=== PATIENT | male | born 1990 | race Two or more races ===

== ENCOUNTER 2023-06-18 08:29 | Outpatient (AMB) | payer MEDICAID, SELFPAY ==
--- NOTE | 2023-06-18 08:34 | A.OFFVIS_ITS ---
Intake Vital Signs 06/18/23 08:36 Height 5 ft 8 in Weight 195 lb 6 oz BMI 29.7 BP 110/70 Blood Pressure Location Rt brachial Position Sitting Respiration 16 Pulse 81 Pulse Source Pulse Oximeter Pulse Oximetry (%) 98 Oxygen Delivery Method Room Air Intake Visit Reasons: ENP-ANGELINE - Confirmed Intake Note: Pt presents to the office for new pt evaluation for ANGELINE. He states he is here to check up on my sleep apnea . 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 He states he's been feeling tired during the day and has even been gaining weight. 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 Pt reports that he was diagnosed with moderate degree of sleep apnea and started CPAP therapy in 2019. However, he lost his mask and power cord when he moved, and could not use it. His home care company is reliable. He states that he could sleep well with CPAP and daytime sleepiness has improved with CPAP. He reports snoring, gasping arousals, nocturia and non refreshing sleep with daytime tiredness. Sleep questionnaire: Have you ever been diagnosed with a sleep disorder? Yes. Have you ever had a sleep study in the past? Yes, home sleep study in 2019. Have you ever been treated for a sleep disorder? Yes, CPAP Do you take medications for a sleep disorder? No. Do you snore? Yes. Do you wake up gasping at night? Yes. Do you have episodes of apneas? Yes. If yes, are they witnessed? Yes. Do you have episodes of nocturnal chest pain or dyspnea? Yes. Do you have difficulty initiating sleep? No. Do you have difficulty maintaining sleep? Yes. Do you wake up tired? Yes. Do you have headaches upon awakening? Yes. Do you wake up with dry mouth or throat? Yes. Do you have GERD? Yes. Do you have nocturia? Yes, 2-3 times. Do you have nocturnal leg cramps? Yes. Do you have symptoms of restless legs? No. Do you act out your dreams? No. Sleep hygiene questionnaire: What is your usual sleep routine? Usual bedtime is at 9-10 pm; Usual wake up time is at 5 am. Do you take naps? No. Is your sleep environment cool, dark, and quiet? Yes. Do you exercise? No. Do you take caffeine or other stimulants? Soda and energy drink. Do you use electronics in bed? Yes. What is your work schedule? 6 am to 6 pm. Hypersomnolence questionnaire: Do you have daytime tiredness or fatigue? Yes. Do you easily fall asleep when inactive? Yes. Have you ever had episodes of sudden weakness? No. Have you ever had episodes of sudden weakness associated with strong emotions? No. PFSH Medical History (Updated 06/18/23 @ 09:11 by Renetta Barrera CNP) Clavicle fracture Family History (Updated 06/18/23 @ 08:44 by Kary Lockett CMA) Mother Diabetes HTN (hypertension) Father No problems noted. Brother No problems noted. Social History (Updated 06/18/23 @ 08:45 by Kary Lockett CMA) Household Members: Spouse and Children Housing: House Alcohol intake: current Patient Tobacco Use Status: Former Tobacco user Review of Systems Const All systems reviewed & are unremarkable except as noted in HPI and below ENT Reports Normal hearing present Neuro Reports Normal hearing present Physical Exam Vital Signs: Last Vital Signs Pulse 81 06/18/23 08:36 Resp 16 06/18/23 08:36 BP 110/70 06/18/23 08:36 Pulse Ox 98 06/18/23 08:36 Oxygen Delivery Method Room Air 06/18/23 08:36 BMI result Body Mass Index 29.7 Const General: cooperative and tired appearing Nutritional Appearance: overweight Orientation/consciousness: patient oriented x3 Neck Neck: Yes full ROM and Yes supple Resp Effort & Inspection: normal respiratory effort and able to speak in complete sentences Neuro General: patient oriented x3, gait normal and moves all extremities Cranial nerves: Yes Bilaterally intact EOM present, Yes Normal facial strength present, Yes Midline tongue present, Yes Symmetric palate elevation present, Yes Normal hearing present, Yes Ability to bilaterally rotate head present and Yes Ability to bilaterally elevate shoulders present Cognition (Neuro): normal cognition Gait exam (Neuro): Normal gait present Motor exam (neuro): 5/5 motor strength present throughout, Pronator motor function not present and no tremor noted Psych Appearance: grossly normal Mental Status: mental status grossly normal Speech and movement: Normal speech and movement present Affect: normal affect Attitude: cooperative Assessment & Plan Assessment & Plan (1) ANGELINE on CPAP: Code(s): G47.33 - Obstructive sleep apnea (adult) (pediatric) Plan Pt is advised to undergo home sleep study to assess for sleep apnea and to apply for new CPAP and supplies. Will f/u with pt after study to discuss results and appropriate treatment options. Wt reduction advised. Pt to call with any worsening concerns or questions. Coding Level of Care Code New Pt Level 3 (81977) Diagnoses ANGELINE on CPAP G47.33
[2023-06-18 08:36] VITALS: BP 110/70; PULSE 81; RESP 16; O2SAT 98; BMI 29.7
== END 2023-06-18 09:17 | disposition home or self-care (01) ==
PROVIDERS: PCP Physician Assistant; Visit Provider Nurse Practitioner Family
DX: G47.33 Obstructive sleep apnea (adult) (pediatric) (principal)
CPT/HCPCS: 99203

== ENCOUNTER → 2023-06-18 08:29 | Outpatient (BNVA) | payer MEDICAID, SELFPAY | PROVIDERS: PCP Physician Assistant; Visit Provider Nurse Practitioner Family | DX: G47.33 Obstructive sleep apnea (adult) (pediatric) (principal); R06.83 Snoring; R40.0 Somnolence | CPT/HCPCS: 99202; 99212 ==

== ENCOUNTER 2023-08-19 21:55 | Emergency (ER) | payer MEDICAID, SELFPAY ==
--- NOTE | ~2023-08-19 | XR_ITS ---
EXAMINATION: XR LUMBOSACRAL SPINE CLINICAL INFORMATION: Low back pain, fall COMPARISON: None available. TECHNIQUE: Three views of the lumbosacral spine. FINDINGS: The vertebral bodies and posterior elements are normal. The disc spaces are preserved and the vertebral alignment is normal. The paraspinal soft tissues are normal. XR/XR lumbar spine 2-3V IMPRESSION: Unremarkable lumbar spine examination.
[2023-08-19 22:54] VITALS: BP 144/86; PULSE 99; RESP 18; TEMP 36.8; O2SAT 96; BMI 29.0
[2023-08-19 23:32] VITALS: BP 125/68; PULSE 87; RESP 14; TEMP 36.8; O2SAT 95
--- NOTE | 2023-08-20 01:01 | ED.BACK ---
HPI - Back Pain/Injury General Chief Complaint: Back Pain/Injury Stated Complaint: Lower back pain Time Seen by Provider: 08/19/23 23:14 Source: patient Mode of arrival: ambulatory Limitations: no limitations History of Present Illness HPI Narrative: Patient is a 33-year-old male presents emergency department for evaluation of back pain. Diffuse across his lower back. He states he had 2 slip and falls on wet pavement yesterday and today. Today he fell with his back landing on to a stair resulting in pain that is radiating into the bilateral buttock. He reports a history of fracture to L1 and L3, did not require any surgical intervention. Denies recent fevers, chills, burning with micturition, urinary frequency/urgency/hesitancy, bladder or bowel dysfunction, numbness or tingling of the perineum or bilateral legs. Denies any recent surgical procedures, any known immune compromising conditions, personal history of cancer, or IV drug usage. MD elicited complaint: back pain Related Data Home Medications Medication Instructions Recorded Confirmed omeprazole 20 mg capsule,delayed 20 mg PO DAILY 06/18/23 release Previous Rx's Medication Instructions Recorded cyclobenzaprine 10 mg tablet 10 mg PO TID PRN muscle spasm #20 08/20/23 tabs lidocaine 5 % topical patch 1 patch topical DAILY #15 ea 08/20/23 Allergies Allergy/AdvReac Type Severity Reaction Status Date / Time morphine Allergy Intermediate Hallucinati Verified 06/18/23 08:40 ons Penicillins Allergy Intermediate Anaphylaxis Verified 06/18/23 08:40 Review of Systems Review of Systems: Yes all other systems are reviewed and are negative ON LICENSE OF [facility] Past Medical History Attestation statement: The following information was validated with the patient. Source: old records reviewed Medical History Clavicle fracture Family History Family History (Updated 06/18/23 @ 08:44 by Kary Lockett CMA) Mother Diabetes HTN (hypertension) Father No problems noted. Brother No problems noted. Social History Social History (Updated 06/18/23 @ 08:45 by Kary Lockett CMA) Household Members: Spouse and Children Housing: House Alcohol intake: current Patient Tobacco Use Status: Former Tobacco user Advance Directives: No Advance Directives Information Provided: No Physical Exam Vital Signs: Vital Signs: Last Vital Signs Temp 98.2 F 12/27/23 23:32 Pulse 87 08/19/23 23:32 Resp 14 08/19/23 23:32 BP 125/68 08/19/23 23:32 Pulse Ox 95 08/19/23 23:32 O2 Del Method Room Air 08/19/23 23:32 BMI result Body Mass Index 29.0 Appearance: Alert.?Oriented to person, place and time. No acute distress.?Normal affect. Eyes: Pupils equal, round and reactive to light.? ENT: Pharynx normal.?? Neck: Normal inspection.? Neck supple.?? CVS: Heart sounds normal. Normal heart rate and rhythm.? Pulses normal; bilateral radial pulses 2+, bilateral posterior tibial/dorsalis pedis pulses 2+.? Respiratory: No respiratory distress.? Lung sounds clear to auscultation bilaterally?? Abdomen: Soft and non-tender. Normoactive bowel sounds. No pulsatile mass.?? Skin: Skin warm and dry.? Normal skin color.? Normal skin turgor.?? Extremities: No lower extremity edema.? No calf ttp? Back: + mild paraspinal muscular tenderness from lumbar region to coccyx. No CVA tenderness. No midline spinal tenderness, step-off's, or deformity. Full ROM intact in bilateral lower extremities. Straight leg test positive on right; Straight leg test positive on left. No rashes, lesions, areas of induration or fluctuance, or signs of infection noted., Neuro: Moves all extremities spontaneously. 5/5 strength in hip extension/flexion, abduction, adduction. Sensation to light touch intact bilaterally. Patellar and Achilles reflex 2+ bilaterally. No ataxia, gait normal and steady.. No focal neuro deficits. Medications Administered Discontinued Medications Generic Name Dose Route Start Last Admin Trade Name Freq PRN Reason Stop Dose Admin Ketorolac Tromethamine 30 mg 08/20/23 01:00 08/20/23 01:20 Ketorolac Tromethamine 30 Mg/Ml Vial IM 08/20/23 01:01 30 mg ONCE ONE Administration Lidocaine 1 patch 08/20/23 01:00 08/20/23 01:21 Lidocaine 4 % Patch Adh..Patch TRANSDERMA 08/20/23 01:01 1 patch ONCE ONE Administration Protocol Medical Decision Making Medical Decision Making MDM Narrative: Patient is a 33-year-old male who presents emergency department for evaluation of low back pain s/p mechanical fall. Upon physical examination there is no palpable midline lumbar spine tenderness, step-offs, deformities. XR reveals no evidence of fracture or subluxation. At this time suspect that Pain is most consistent with muscular pain, although cannot completely exclude herniated disc. On neurological exam there are no deficits. Not consistent with spinal infection, epidural abscess, AAA, epidural abscess, or dissection. No high risk past medical history including incontinence, fever, immunosuppression, recent surgery or lumbar puncture, coagulopathy, significant trauma, recent unintentional weight loss, pulsatile mass, history of cancer, history of TB, history of IV drug use that would warrant MRI or CT. Not consistent with ectopic , pyelonephritis, urinary tract infection, renal calculi, pelvic infection, appendicitis, diverticulitis. On exam no concern for cauda equina syndrome. No imaging is currently indicated at this time. Plan for discharge home with advised mint for rest, ice/heat, acetaminophen/ibuprofen, like patch, prescription for cyclobenzaprine, and follow-up with primary care provider, and patient agreed with plan. Differential Diagnosis Differential Diagnoses: The differential diagnosis associated with the presentation includes (As noted above) Admission/Observation Consideration of admission/observation: Escalation of care including admission/observation considered (As noted above) Independent Interpretation I performed an independent interpretation of an: Plain X-Ray (I personally interpreted XR imaging and agree with radiologist impression.) Radiology Impression Discussion of test interpretation with radiology: I have reviewed the radiologist's reading. Radiologist Impression: XR/XR lumbar spine 2-3V IMPRESSION: Unremarkable lumbar spine examination. Independent Historian Clinical information obtained from an independent historian. History obtained from or confirmed by: Spouse Prescription Management I considered prescription management with: Pain Medication Discharge Plan Discharge Clinical Impression: Strain of lumbar region Patient Disposition: Home, Self-Care Instructions: Acute Low Back Pain (ED), R.I.C.E. Treatment (ED), Lower Back Exercises (ED) Additional Instructions: You can take ibuprofen 200 mg, 3 tablets (600mg) every 6-8 hours as needed for pain, in addition to Tylenol 500 mg, 2 tablets (1,000mg) every 4-6 hours as needed for pain, but not to exceed 3 doses daily (3,000mg).? Apply ice the area for 10-15 minutes 3-4 times daily. Apply Lidoderm patch to area of most pain, leave on for 12 hours, remove for 12 hours. I have sent a prescription for cyclobenzaprine/Flexeril to your pharmacy, this muscle relaxant medication. This medication may make you drowsy. Should not drive, drink alcohol, or work while taking this medication. Prescriptions: New lidocaine 5 % adhesive patch,medicated 1 patch topical DAILY Qty: 15 0RF Rx Instructions: leave on most painful area for up to 12 hrs cyclobenzaprine 10 mg tablet 10 mg PO TID PRN (Reason: muscle spasm) Qty: 20 0RF No Action omeprazole 20 mg capsule,delayed release(DR/EC) 20 mg PO DAILY Referrals: Mayte Urena PA-C [Primary Care Provider] - Interventions: ED Discharge Assessment Last Done: 08/20/23 01:28 Discharge Date/Time: 08/20/23 01:30
[2023-08-20] MEDS: Ketorolac Tromethamine 30 MG/ML VIAL IM (01:20)
[2023-08-20] MEDS: Lidocaine 4 % Patch ADH..PATCH 1 PATCH TRANSDERMA (01:21)
== END 2023-08-20 01:30 | disposition home or self-care (01) ==
PROVIDERS: Emergency Provider Student in an Organized Health Care Education/Training Program; PCP Physician Assistant
DX: S39.012A Strain of muscle, fascia and tendon of lower back, initial encounter (principal); W01.0XXA Fall on same level from slipping, tripping and stumbling without subsequent striking against object, initial encounter; Y93.9 Activity, unspecified; Y92.9 Unspecified place or not applicable; Y99.9 Unspecified external cause status
CPT/HCPCS: 72100; 96372; 99283; 99284; J1885

== ENCOUNTER → 2023-08-25 13:58 | Outpatient (REF) | payer MEDICAID, SELFPAY | LOC: HO.SL 13:58 | PROVIDERS: PCP Physician Assistant; Visit Provider Nurse Practitioner Family | DX: G47.33 Obstructive sleep apnea (adult) (pediatric) (principal) | CPT/HCPCS: 95806; 95811 ==

== ENCOUNTER → 2023-08-25 14:12 | Outpatient (BNV) | payer MEDICAID, SELFPAY | PROVIDERS: PCP Physician Assistant; Visit Provider Psychiatry & Neurology Neurology | DX: G47.33 Obstructive sleep apnea (adult) (pediatric) (principal) | CPT/HCPCS: 95806 ==

== ENCOUNTER → 2023-09-23 22:13 | Outpatient (REF) | payer MEDICAID, SELFPAY | LOC: HO.SL 22:13 | PROVIDERS: PCP Physician Assistant; Visit Provider Nurse Practitioner Family | DX: Z13.89 Encounter for screening for other disorder (principal) ==

== ENCOUNTER → 2023-09-23 22:38 | Outpatient (BNV) | payer MEDICAID, SELFPAY | PROVIDERS: PCP Physician Assistant; Visit Provider Psychiatry & Neurology Neurology | DX: G47.33 Obstructive sleep apnea (adult) (pediatric) (principal) | CPT/HCPCS: 95811 ==

== ENCOUNTER 2025-04-21 12:06 | Emergency (ER) | payer SELFPAY ==
--- NOTE | ~2025-04-21 | XR_ITS ---
EXAMINATION: XR SHOULDER 2 OR MORE VIEWS RIGHT HISTORY: pain COMPARISON: There are no prior studies available for comparison. FINDINGS: Four views of the right shoulder are submitted. Osseous mineralization is normal. The patient is status post internal fixation of the clavicle with plate and screws. No acute fracture or dislocation is seen. The glenohumeral and acromioclavicular joint spaces are preserved. The soft tissues are unremarkable. XR/XR shoulder RT min 2V IMPRESSION: Internal fixation of the right clavicle. Otherwise unremarkable examination of the right shoulder. Electronically signed by: Aleksandr Abdalla MD 04/21/2025 12:46 PM EDT
[2025-04-21 12:26] VITALS: BP 108/82; PULSE 94; RESP 16; TEMP 36.3; O2SAT 95; BMI 29.0
--- NOTE | 2025-04-21 12:26 | ED_ITS ---
HPI - General Adult General Chief complaint: Extremity Injury, Upper Stated complaint: pain in right shoulder Time Seen by Provider: 04/21/25 12:35 Source: patient Mode of arrival: ambulatory Limitations: no limitations History of Present Illness ED Provider: SEVERINO CASTRO PA-C HPI narrative: 35 year old male presents to the ED today for evaluation of right shoulder pain which began yesterday evening. He does not recall any specific enticing event. He states that he was playing with his children after school around 1500. After this, he began to have gradual onset of right shoulder pain. Pain extends from lateral aspect of right shoulder up into his right neck. Pain is exacerbated with any movement of the right upper extremity. Denies any numbness/tingling of the right upper extremity. Denies blunt trauma or injury. 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 Pertinent surgical history includes internal fixation of right clavicle. Related Data Home Medications ?Medication ?Instructions ?Recorded ?Confirmed omeprazole 20 mg capsule,delayed 20 mg PO DAILY release Previous Rx's ?Medication ?Instructions ?Recorded cyclobenzaprine 10 mg tablet 10 mg PO TID PRN muscle s pasm #20 08/20/23 tabs lidocaine 5 % topical patch 1 patch topical DAILY #15 ea 08/20/23 Allergies Allergy/AdvReac Type Severity Reaction Status Date / Time morphine Allergy Intermediate Hallucinati Verified 04/21/25 12:28 ons Penicillins Allergy Intermediate Anaphylaxis Verified 04/21/25 12:28 Review of Systems Review of Systems: Yes all other systems are reviewed and are negative PMFSH Past Medical History Attestation statement: The following information was validated with the patient. Source: old records reviewed and nursing notes reviewed Medical History Clavicle fracture Family History Family History Mother Diabetes HTN (hypertension) Father No problems noted. Brother No problems noted. Social History Social History Household Members: Spouse and Children Housing: House Alcohol intake: current Patient Tobacco Use Status: Former Tobacco user Smoked in Last 30 Days: No Use of substances other than those prescribed or required for medical reasons: No Advance Directives: No Advance Directives Information Provided: Yes Do you have a plan to hurt others: No Plan Physical Exam ED Vital Signs: Vital Signs - 24 hr 04/21/25 12:26 04/21/25 12:42 04/21/25 14:15 Temperature 97.4 F 97.7 F 97.7 F Pulse Rate 94 87 87 Respiratory Rate 16 18 18 Blood Pressure 108/82 132/78 132/78 Pulse Oximetry 95 96 96 Oxygen Delivery Method Room Air Room Air Room Air BMI result Body Mass Index 29.0 vital signs stable General: Well appearing, in no acute distress. Skin: Warm, dry, intact. No rashes or lesions. Head: Normocephalic, atraumatic. EENT: Hearing is intact b/l. Conjunctiva clear. Sclera is anicteric. PERRLA. EOM intact. Moist mucous membranes.? Cardiac: Chest wall symmetric. RRR Lungs: Normal respiratory effort without accessory muscle use Back: No midline spinous or paraspinal tenderness. No step off deformity. Ext:+no overlying skin changes to right shoulder. No swelling. Well-healed scar noted over right clavicle. Active ROM of right shoulder to about 90? with extension and abduction before pain is elicited. Tender to palpation over right deltoid extending into right trapezius. No palpable crepitus or deformity. Director Of Marketing strength intact. Full ROM intact to C-spine. Neuro: AOx3. Normal speech. Ambulating with steady gait. Course Course Course Narrative: RME, this is a rapid medical exam performed by Luis Chatman please refer to primary provider for complete H&P- 35 year old male presents for evaluation of aromatic right shoulder pain since last night. He reports previous clavicle surgery on that side, Plan for x-ray. Reevaluation(s) Reevaluation #1: X-ray right shoulder showing internal fixation of right clavicle, no acute fracture or other bony abnormality. Patient's exam is consistent with possible rotator cuff injury given limited ROM to abduction and extension. Treated with Toradol, Flexeril and lidocaine patch in the ED. Provided with sling for comfort. Advised outpatient follow-up. Patient has remained stable throughout ED visit today. Discussed worrisome signs and symptoms and when to return to the ED. All questions answered at this time. Patient is agreeable with disposition and stable for discharge. his will be driving him home today as he recieved flexeril in ED. Medications Administered Discontinued Medications Generic Name Dose Route Start Last Admin Trade Name Brandon PRN Reason Stop Dose Admin Cyclobenzaprine HCl 5 mg 04/21/25 13:59 04/21/25 14:08 Cyclobenzaprine Hcl 5 Mg Tablet PO 04/21/25 14:00 5 mg ONCE ONE Administration Ketorolac Tromethamine 30 mg 04/21/25 13:59 04/21/25 14:08 Ketorolac Tromethamine 30 Mg/Ml Vial IM 04/21/25 14:00 30 mg ONCE ONE Administration Lidocaine 1 patch 04/21/25 13:59 04/21/25 14:08 Lidocaine 4 % Patch Adh..Patch TRANSDERMA 04/21/25 14:00 1 patch ONCE ONE Administration Protocol Procedures Orthopedic Splinting/Casting Injury #1: Side: right Upper Extremity Injury Location: shoulder Upper Extremity Immobilizer: sling/shoulder immobilizer Medical Decision Making Medical Decision Making MDM Narrative: 35 year old male presents to the ED today for evaluation of right shoulder pain which began yesterday evening. vital signs stable. he is overall well appearing and in NAD. on exam, there are no overlying skin changes to right shoulder. No swelling. Well-healed scar noted over right clavicle. Active ROM of right shoulder to about 90? on extension and abduction before pain is elicited. Tender to palpation over right deltoid extending into right trapezius. No palpable crepitus or deformity. Director Of Marketing strength intact. Full ROM intact to C- spine. Differential diagnosis include MSK sprain/strain, fracture, rotator cuff injury, shoulder impingement, cervical radiculopathy, tendonitis, arthritis, hardware malfunction. Unlikely DVT, neurovascular compromise, threat to limb. Plan for imaging, pain control, anticipate discharge home. Differential Diagnosis Differential Diagnoses: The differential diagnosis associated with the presentation includes as above. Admission/Observation not indicated Independent Interpretation I performed an independent interpretation of an: Plain X-Ray Interpretation: X-ray right shoulder without fracture Radiology Impression Discussion of test interpretation with radiology: I have reviewed the radiologist's reading. Radiologist Impression: Procedure(s): XR shoulder RT min 2V Accession Number(s): [id number] cc: [place]; Talha Chatman~ EXAMINATION: XR SHOULDER 2 OR MORE VIEWS RIGHT HISTORY: pain COMPARISON: There are no prior studies available for comparison. FINDINGS: Four views of the right shoulder are submitted. Osseous mineralization is normal. The patient is status post internal fixation of the clavicle with plate and screws. No acute fracture or dislocation is seen. The glenohumeral and acromioclavicular joint spaces are preserved. The soft tissues are unremarkable. XR/XR shoulder RT min 2V IMPRESSION: Internal fixation of the right clavicle. Otherwise unremarkable examination of the right shoulder. Electronically signed by: Aleksandr Abdalla MD 04/21/2025 12:46 PM EDT RP Independent Historian Clinical information obtained from an independent historian. History obtained from or confirmed by: Spouse () External Record Review External record reviewed: Inpatient record Prescription Management I considered prescription management with: Pain Medication Social Determinants Patient?s care significantly limited by Social Determinants of Health including: Other Social Determinant of Health Critical Care Time Critical Care Time Critical Care Time: No Discharge Plan Discharge Clinical Impression: Right shoulder strain Patient Disposition: Home, Self-Care Instructions: Muscle Strain (ED), Rotator Cuff Injury (ED) Additional Instructions: You were evaluated in the ED today for right shoulder pain. Your x-ray is reassuring. I have suspicion that you injured the muscles within your shoulder. I have placed you in a sling for comfort. Make sure that you are removing your arm from the sling multiple times a day and moving your shoulder around to avoid frozen shoulder. Use ice several times per day for 20 minutes at a time for the next 48 hours and then change to heat. I recommend you take 600mg ibuprofen every 6 hours or tylenol 650mg every 6 hours as needed for pain. If needed, you can alternate these medications so that you take one medication every 3 hours. For example, at noon take ibuprofen, then at 3pm take tylenol, then at 6pm take ibuprofen. Flexeril is a muscle relaxer. Take this at night as it makes you drowsy. Do not drive, drink alcohol, or operate machinery while taking it. Lidoderm patches are numbing patches. Apply to painful areas. Please schedule an appointment for follow-up with your primary care provider this week for further evaluation of your symptoms. Return with any new or worsening symptoms. In the case of an emergency call 911. Prescriptions: No Action lidocaine 5 % adhesive patch,medicated 1 patch topical DAILY Qty: 15 0RF Rx Instructions: leave on most painful area for up to 12 hrs cyclobenzaprine 10 mg tablet 10 mg PO TID PRN (Reason: muscle spasm) Qty: 20 0RF omeprazole 20 mg capsule,delayed release(DR/EC) 20 mg PO DAILY Referrals: [facility] [Primary Care Provider, Primary Care] Interventions: ED Discharge Assessment Last Done: 04/21/25 14:15 Discharge Date/Time: 04/21/25 14:17 Print Language: Palauan
[2025-04-21 12:42] VITALS: BP 132/78; PULSE 87; RESP 18; TEMP 36.5; O2SAT 96
--- NOTE | 2025-04-21 12:48 | PC.NURSE ---
Patient is a 35 year old male presents with no significant PMH for evaluation of atraumatic right shoulder pain since last night. He reports previous clavicle surgery on that side. c/o increased pain with movement. Respirations even and non-labored. Abdomen soft, non-tender with positive bowel sounds.
--- OUTSIDE RECORDS SUMMARY | 2025-04-21 13:41 | XMS_ITS | Clinical Summary ---
Author Organization [facility] ity Address [address] [place] [address] Care Team Providers Care Physician Assistant Psychiatry Name Role Phone Unavailable Primary Care Provider Unavailabl e Social History Tobacco Use Types Packs/Day Years Used Date Smoking Tobacco: Never Assessed Sex and Gender Information Value Date Recorded Sex Assigned at Not on file Legal Sex Male 10:53 PM EST Gender Identity Not on file Sexual Orientation Not on file Plan of Treatment Health Maintenance Due Date Last Done Comments DTaP,Tdap,and Td Vaccines (1 - Tdap) 2010 Hepatitis B Vaccines (1 of 3 - 19+ 3-dose series) 2010 COVID-19 Vaccine ( - 2023-2 5 season) 2024 Depression Screening 08/24/2024 Influenza Vaccine (#1) 2025 HIB Vaccines Aged Out No longer eligi ble based on patient's age to complete this topic HPV Vaccines Aged Out No longer eligi ble based on patient's age to complete this topic Hepatitis A Vaccines Aged Out No long er eligible based on patient's age to complete this topic IPV Vaccines Aged Out No longer eligi ble based on patient's age to complete this topic MMR Vaccines Aged Out No longer eligi ble based on patient's age to complete this topic Meningococcal ACWY Vaccine Aged Out N o longer eligible based on patient's age to complete this topic Meningococcal B Vaccine Aged Out No l onger eligible based on patient's age to complete this topic Pneumococcal Vaccine: Pediat rics (0 to 5 Years) and At-Risk Patients (6 to 49 Years) Aged Out No longer eligible b ased on patient's age to complete this topic RSV Immunization Patients Un luna 20 months Aged Out No longer eligible b ased on patient's age to complete this topic Varicella Vaccines Aged Out No longer eligible based on patient's age to complete this topic
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
[2025-04-21] MEDS: Lidocaine 4 % Patch ADH..PATCH 1 PATCH TRANSDERMA (14:08)
[2025-04-21 14:15] VITALS: BP 132/78; PULSE 87; RESP 18; TEMP 36.5; O2SAT 96
== END 2025-04-21 14:17 | disposition home or self-care (01) ==
PROVIDERS: Emergency Provider Emergency Medicine; PCP Dentist General Practice
DX: S46.911A Strain of unspecified muscle, fascia and tendon at shoulder and upper arm level, right arm, initial encounter (principal); M25.511 Pain in right shoulder; X58.XXXA Exposure to other specified factors, initial encounter; Y93.9 Activity, unspecified; Y92.9 Unspecified place or not applicable; Y99.8 Other external cause status
CPT/HCPCS: 29105; 73030; 96372; 99284; J1885

== ENCOUNTER → 2025-04-21 12:26 | Outpatient (BNV) | payer MEDICAID, SELFPAY | PROVIDERS: Emergency Provider Emergency Medicine; PCP Dentist General Practice; Visit Provider Radiology Diagnostic Radiology | DX: M25.511 Pain in right shoulder (principal) | CPT/HCPCS: 73030 ==

== ENCOUNTER 2025-07-31 08:53 | Emergency (ER) | payer SELFPAY ==
--- NOTE | ~2025-07-31 | XR_ITS ---
EXAMINATION: XR CHEST CLINICAL INFORMATION: cough COMPARISON: None available. TECHNIQUE: 2 views of the chest were obtained. FINDINGS: The cardiac, hilar, and mediastinal contours are normal. The lungs are clear bilaterally. There is no pneumothorax or pleural effusion. There is no focal osseous or soft tissue abnormality. Right clavicular fixation hardware noted in place. XR/XR chest 2V IMPRESSION: No active pulmonary disease. Electronically signed by: Valente Foy MD 07/31/2025 09:17 AM TY
[2025-07-31 09:02] VITALS: BP 136/69; PULSE 106; RESP 18; TEMP 36.7; O2SAT 96; BMI 30.7
[2025-07-31 10:12] LABS: Resp Syncy Virus RNA Qual PCR NEGATIVE (Negative); SARS COV2 PCR INHOUSE NEGATIVE (Negative)
--- NOTE | 2025-07-31 10:13 | ED_ITS ---
HPI - General Adult General Chief complaint: General Medical Stated complaint: Fever Body Aches Time Seen by Provider: 07/31/25 10:09 Source: patient, family and RN notes reviewed Mode of arrival: ambulatory Limitations: no limitations History of Present Illness ED Provider: Flora Kessler PA-C HPI narrative: 35 y/o adult male with a history of obstructive sleep apnea (uses CPAP) who pres ents to the ED for 2 weeks of upper respiratory symptoms. Symptoms began after staying in a hotel two weeks ago where he noticed ?slimy? bed corners. He experienced temporary improvement but worsened after a rainy trip to [place] last weekend. Current symptoms include persistent cough, nasal congestion, runny nose with significant post-nasal drip, headache, body aches, and recent hoarseness. He has been using a throat spray and daily Afrin; acknowledges daily use >3 days. Reports that Afrin initially provided relief but now symptoms are worsening. He has also used Sudafed intermittently. No shortness of breath. Denies pneumonia; viral panel (COVID-19, influenza, RSV) in ED was negative. No known medication allergies mentioned. Review of Systems: * General: Positive for body aches. No joint, rashes, fevers, or changes to appetite * HEENT: Positive for nasal congestion, runny nose, post-nasal drip, headache, hoarseness. * Respiratory: Positive for cough; denies dyspnea (not stated). Related Data Home Medications ?Medication ?Instructions ?Recorded ?Confirmed omeprazole 20 mg capsule,delayed 20 mg PO DAILY 05/10/25 release Previous Rx's ?Medication ?Instructions ?Recorded cyclobenzaprine 10 mg tablet 10 mg PO TID PRN muscle s pasm #20 04/21/25 tabs lidocaine 5 % topical patch 1 patch topical DAILY #15 ea 04/21/25 ipratropium bromide 21 mcg (0.03 2 spray intranasal TI D 14 days #30 07/31/25 %) nasal spray mL Allergies Allergy/AdvReac Type Severity Reaction Status Date / Time morphine Allergy Intermediate Hallucinati Verified 07/31/25 09:04 ons Penicillins Allergy Intermediate Anaphylaxis Verified 07/31/25 09:04 Review of Systems Review of Systems: Yes all other systems are reviewed and are negative PMFSH Past Medical History Attestation statement: The following information was validated with the patient. Source: nursing notes reviewed Medical History Clavicle fracture Family History Family History Mother Diabetes HTN (hypertension) Father No problems noted. Brother No problems noted. Social History Social History Household Members: Spouse and Children Housing: House Alcohol intake: current Patient Tobacco Use Status: Former Tobacco user Advance Directives: No Advance Directives Information Provided: No Do you have a plan to hurt others: No Plan Physical Exam ED Exam Exam: General: Appears in no acute distress, appears well nourished body habitus is obese appears stated age. No septic or ill-appearing. Vitals reviewed normal, PMH/Social and Surgical hx reviewed including allergies and current medications. - reviewed for prior visits here. Head: Normocephalic, no obvious trauma or skin lesions noted. Eyes: EOMI, conjunctiva and sclera clear ENMT: moist oral mucosa, uvula is midline no trismus, tonsils present, no edema exudate or erythema, posterior pharynx with clear PND, edematous nasal turbinates without injection or purulent d/c, sounds stuffy, sniffles Neck: trachea midline, no lymphadenopathy Cardiovascular: peripheral perfusion normal, Regular heart rate regular rate via auscultation Respiratory: no respiratory distress, lungs CTAB Abdomen: nondistended Extremities: warm and moving without difficulty Psych: Cooperative Neuro: Alert and oriented. Vital Signs: Vital Signs - 24 hr 07/31/25 09:02 Temperature 98.1 F Pulse Rate 106 H Respiratory Rate 18 Blood Pressure 136/69 Pulse Oximetry 96 Oxygen Delivery Method Room Air BMI result Body Mass Index 30.7 Medical Decision Making Medical Decision Making MDM Narrative: This adult male with a history of obstructive sleep apnea on CPAP presents with 2 weeks of cough, nasal congestion, headache, body aches, and postnasal drip. Evaluation in the ED revealed negative chest X-ray and viral panel (COVID-19, influenza, RSV), and physical exam showed a clear right middle-ear effusion without signs of acute infection. The clinical picture is most consistent with a viral upper respiratory infection, complicated by overuse of Afrin nasal spray resulting in rebound congestion. Management includes discontinuation of Afrin, initiation of ipratropium nasal spray for rhinorrhea and postnasal drip, supportive care, and monitoring for worsening symptoms; antibiotics are not indicated at this time. Problem #1: Viral Upper Respiratory Infection Assessment: Cough, congestion, rhinorrhea, hoarseness x 2 weeks; negative viral panel; CXR clear. Likely viral etiology. Plan: * Prescribe alternative nasal spray (non-Afrin) to reduce rhinorrhea/mucus production. * Advised patient to discontinue Afrin due to risk of rebound congestion from daily use >3 days. * Supportive care: hydration, rest, [id number] symptomatic relief as needed. * Educated patient that symptoms may persist 1?4 weeks; advised hand hygiene and to avoid spreading illness. Problem #2: Right Middle-Ear Effusion (Serous Otitis Media) Assessment: Clear fluid behind right eardrum, non-infected; likely chronic from eustachian tube dysfunction related to URI/allergies. Plan: * No antibiotics indicated at this time. * Monitor symptoms; return if ear pain, fever, or hearing loss develops. Problem #3: Obstructive Sleep Apnea (history) Assessment: History of ANGELINE on CPAP; not directly related to current visit. Disposition: Discharged home from ED. Patient declined work note. Advised to return for worsening symptoms or new concerns. Differential Diagnosis Differential Diagnoses: The differential diagnosis associated with the presentation includes AOM (normal), AOE (normal) bacterial sinusitis (0/3), strep/ tonsillitis (SHELTER score is 0, testing not indicated), bronchitis/pneumonia (lungs clear, no fever improved sxs, CXR clear: PO abx/steroids not indicated) Admission/Observation Consideration of admission/observation: Escalation of care including admission/observation considered Patient would have been admitted to the hospital had his work up had any findings where hospital admission was appropriate and his clinical presentation warranted hospital admission. Lab Data MDM Lab Attestation statement: I reviewed the patient's lab results. negative vrail swab Labs: Lab Results 07/31/25 Range/Units 09:30 Influenza Type A (PCR) NEGATIVE (Negative) Influenza Type B (PCR) NEGATIVE (Negative) RSV RNA Qual (PCR) NEGATIVE (Negative) SARS-CoV-2 RNA (RT-PCR) NEGATIVE (Negative) Independent Interpretation I performed an independent interpretation of an: Plain X-Ray Interpretation: no infiltrate Radiology Impression Discussion of test interpretation with radiology: I have reviewed the radiologist's reading. Independent Historian Clinical information obtained from an independent historian. History obtained from or confirmed by: Spouse Prescription Management I considered prescription management with: Antibiotic no indication of bacterial infection Chronic Conditions Patient?s care impacted by: Other Social Determinants Patient?s care significantly limited by Social Determinants of Health including: Other Social Determinant of Health Discharge Plan Discharge Clinical Impression: URI (upper respiratory infection), Rhinitis medicamentosa, Chronic serous otitis media of right ear Patient Disposition: Home, Self-Care Instructions: Fluid In The Ear (Serous Otitis Media) (ED) Additional Instructions: You have an upper respiratory infection. You are negative to COVID, FLU and RSV. Your chest xray is clear. This is an infection involving the nose, throat and larynx, almost always caused by a virus. The infection rarely spreads or leads to serious long-term problems. Since the infection is caused by a virus, antibiotics are not helpful. It may help your symptoms to use a decongestant nose spray to open the nasal passages and permit drainage. Afrin nasal spray (or a similar decongestant spray) can be used twice a day for up to four days. You may develop tolerance to it if used longer than this. You may take Tylenol 650mg orally every 6 hours or Motrin (advil) 600mg orally every 6 hours as needed. Please take the motrin with food. Over the counter Flonase nasal spray can help with any congestion/sinus pressure. With time this can also help alleviate ear pressure that occurs as a result of the congestion. Over the counter Stafford Mist Nasal Saline can be used a few times daily to help irrigate the nose/sinuses to help with congestion. Warm tea with honey can help the throat and cough. You may trial use of an over the counter decongestant such as Sudafed. Return or get rechecked by your doctor if you get high or prolonged fever (over 101 F orally), worsening pain, swelling over your face or eyes, earache, shortness of breath or chest pain, severe headache, stiff neck, vomiting, or a rash. If you are not improving after 10 days of illness you should be re-evaluate. Respiratory tract infections are usually spread by coughing; the virus lands on surfaces and is then picked up on the hands and carried to the nose or mouth - so good hand washing is important to avoid spreading the virus. Prescriptions: New ipratropium bromide 21 mcg (0.03 %) spray,non-aerosol 2 spray intranasal TID 14 Days Qty: 30 0RF Rx Instructions: administer into each nostril No Action cyclobenzaprine 10 mg tablet 10 mg PO TID PRN (Reason: muscle spasm) Qty: 20 0RF lidocaine 5 % adhesive patch,medicated 1 patch topical DAILY Qty: 15 0RF Rx Instructions: leave on most painful area for up to 12 hrs omeprazole 20 mg capsule,delayed release(DR/EC) 20 mg PO DAILY Interventions: ED Discharge Assessment Last Done: 07/31/25 11:11 Discharge Date/Time: 07/31/25 11:12 Print Language: Danish
[2025-07-31 11:11] VITALS: BP 136/69; PULSE 106; RESP 18; TEMP 36.7; O2SAT 96
== END 2025-07-31 11:12 | disposition home or self-care (01) ==
PROVIDERS: Emergency Provider Student in an Organized Health Care Education/Training Program; PCP Dentist General Practice
DX: J06.9 Acute upper respiratory infection, unspecified (principal); H65.21 Chronic serous otitis media, right ear; R50.9 Fever, unspecified; R05.9 Cough, unspecified; Z03.818 Encounter for observation for suspected exposure to other biological agents ruled out; G47.33 Obstructive sleep apnea (adult) (pediatric); Z99.89 Dependence on other enabling machines and devices
CPT/HCPCS: 71046; 87637; 99282; 99283

== ENCOUNTER → 2025-07-31 09:13 | Outpatient (BNV) | payer SELFPAY | PROVIDERS: PCP Dentist General Practice; Visit Provider Radiology Diagnostic Radiology | DX: R05.9 Cough, unspecified (principal) | CPT/HCPCS: 71046 ==